=== PATIENT | male | born 1975 | race Caucasian/White ===

== ENCOUNTER 2021-03-30 11:48 | Emergency (ER) | payer OTHER ==
--- NOTE | 2021-03-30 15:08 | CR ---
EXAMINATION: Cervical Spine 3V SEX: Male AGE: 45 years CLINICAL HISTORY: 45-year-old male complaining of shoulder pain and numbness/tingling fingers. Interpretation: 1. Reversal of usual cervical lordosis and evidence of chronic lower cervical disc degeneration with associated reactive arthritic changes i.e. interspace narrowing endplate sclerosis and hypertrophic marginal/uncinate spur formation C5-6. 2. Homogeneous normal bone mineral density. 3. No prevertebral soft tissue swelling, cervical fracture or spondylolisthesis (dislocation). 4. No cervical rib anomalies. Lung apices clear. CONCLUSION: Chronic cervical disc degeneration. No fracture or dislocation C-spine.
--- NOTE | 2021-03-30 15:12 | CR ---
EXAMINATION: Shoulder 2 view Lt SEX: Male AGE: 45 years CLINICAL HISTORY: 45-year-old male "tearing down a barn"" presents with posterior left shoulder pain and swelling. Interpretation: Homogeneous normal bone mineral density. Normal spacing between the acromion process scapula the head of the humerus and no juxta-articular rotator cuff tendon calcifications. No left shoulder fracture, acromioclavicular separation or glenohumeral dislocation. Underlying ribs upper left hemithorax unremarkable. Left lung apex clear. CONCLUSION: Negative exam.
--- NOTE | 2021-03-30 15:14 | CR ---
EXAMINATION: Scapula Lt SEX: Male AGE: 45 years CLINICAL HISTORY: 45-year-old male left shoulder pain (limited mobility, swelling posteriorly) Interpretation: Negative exam. Homogeneous normal bone density of the scapula. No arthritic degenerative changes of the glenohumeral joint. Acromioclavicular joint intact. Underlying ribs upper left hemithorax unremarkable. Left lung apex clear. No pneumothorax.
[2021-03-30] MEDS ORDERED: Orphenadrine 60 MG/2 ML Inj IM ONE (16:49)
[2021-03-30] MEDS ORDERED: Ketorolac 30 MG/ML SDV IM ONE (16:49)
--- NOTE | 2021-03-30 16:56 | EDM.PDOC ---
ED HPI GENERAL MEDICAL PROBLEM - General Chief Complaint: Back Pain or Injury Stated Complaint: UPPER LEFT BACK PAIN Time Seen by Provider: 03/30/21 16:40 Source of Information: Reports: Patient, RN, RN Notes Reviewed History Limitations: Reports: No Limitations - History of Present Illness INITIAL COMMENTS - FREE TEXT/NARRATIVE: Rodrigo is a 45 y/o male who presents to the ED via personal vehicle with complaints of left posterior thoracic pain and left arm numbness. The patient reports he was demolishing a barn when suddenly he developed pain to his left, medial scapular region which radiated into the left shoulder. Additionally, he noted transient numbness and tingling into the hand and fingers. He became concerned about myocardial ischemia due to the location of the pain and the paraesthesia to his left hand. The patient denies history of cardiac events. He denies vision changes, dizziness, chest pain/pressure, palpitations, shortness of breath, dyspepsia, nausea, vomiting, or abdominal pain. He denies history of injury to the affected extremity. He has taken no medications or performed any supportive cares for his symptoms. - Related Data Allergies Allergy/AdvReac Type Severity Reaction Status Date / Time No Known Allergies Allergy Verified 08/27/18 16:30 Home Meds: Home Meds Thyroid,Pork [[place] Thyroid] 30 mg PO DAILY 02/04/18 [History] Cholecalciferol (Vitamin D3) [Vitamin D3] 5,000 unit PO DAILY 08/27/18 [History] Fish Oil/DHA/EPA [Fish Oil 1,200 MG] 2 cap PO DAILY 08/27/18 [History] Multivitamin [Daily Multiple Vitamin] 1 each PO DAILY 08/27/18 [History] Ubidecarenone [Co Q-10] 100 mg PO DAILY 08/27/18 [History] Rosuvastatin Calcium 10 mg PO DAILY 03/30/21 [History] hydrOXYzine HCL [Hydroxyzine HCl] 25 mg PO ASDIRECTED PRN 03/30/21 [History] Past Medical History HEENT History: Reports: None Cardiovascular History: Reports: High Cholesterol Respiratory History: Reports: None Gastrointestinal History: Reports: None Genitourinary History: Reports: None Musculoskeletal History: Reports: Arthritis, Back Pain, Chronic Other Musculoskeletal History: low back pain Neurological History: Reports: None Psychiatric History: Reports: Anxiety, PTSD, Other (See Below) Other Psychiatric History: ANXIETY R/T OVERSEAS Endocrine/Metabolic History: Reports: Hypothyroidism Hematologic History: Reports: None Dermatologic History: Reports: None Social & Family History - Tobacco Use Tobacco Use Status *Q: Never Tobacco User Second Hand Smoke Exposure: No - Caffeine Use Caffeine Use: Reports: Coffee ED ROS GENERAL - Review of Systems Review Of Systems: Comprehensive ROS is negative, except as noted in HPI. ED EXAM, UPPER BACK/NECK PAIN - Physical Exam Exam: See Below Exam Limited By: No Limitations General Appearance: Alert, No Apparent Distress Eye Exam: Bilateral Eye: EOMI, Normal Inspection, PERRL (3mm) Ears Exam: Normal External Exam, Hearing Grossly Normal Nose Exam: Normal Inspection, Normal Mucousa, No Blood Throat/Mouth Exam: Normal Inspection, Normal Lips, Normal Teeth, Normal Gums, Normal Oropharynx, Normal Voice, No Airway Compromise Head Exam: Atraumatic, Normocephalic Neck Exam: Full Range of Motion, Normal Alignment, Muscle Spasm, Paraspinous Muscle Tender (To left lateral neck). No: Painful Range of Motion, Spinous Processes Tender, Tender Midline Nexus Criteria: No: Posterior, Midline Cervical Tenderness, Evidence of Intoxication, Altered Level of Consciousness, Focal Neurological Deficit, Pain ful Distraction Injuries Cardiovascular/Respiratory: Regular Rate, Rhythm, No M/R/G, Normal Peripheral Pulses, No JVD, Normal Breath Sounds, No Respiratory Distress GI/Abdominal: Normal Bowel Sounds, Soft, Non-Tender (Male) Exam: Deferred Rectal (Males) Exam: Deferred Back Exam: Muscle Spasm (To left upper subscapular region), Paraspinal Tenderness (To left upper subscapular region) Extremities: Normal Range of Motion, No Pedal Edema, Normal Capillary Refill, Arm Pain (To left shoulder). 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 nml As Tested, No Motor/Sensory Deficits, Alert, Normal Mood/Affect, Oriented x 3 Psychiatric: Normal Affect, Normal Mood Skin Exam: Normal Color, Warm/Dry Lymphatic: No Adenopathy #1 Interpretation EKG Date: 03/30/21 Time: 17:16 Rhythm: NSR Rate (Beats/Min): 71 [place]: Normal P-Wave: Present QRS: Normal ST-T: Normal QT: Normal CT/PQ Interval: 0.152 Comparison: No Change EKG Interpretation Comments: NSR; q-wave in III; No evidence of acute myocardial ischemia Course - Vital Signs Last Recorded V/S: Last Vital Signs Temp 97.7 F 03/30/21 13:40 Pulse 72 03/30/21 13:40 Resp 16 03/30/21 13:40 BP 132/87 03/30/21 13:40 Pulse Ox 98 03/30/21 13:40 - Orders/Labs/Meds Meds: Medications Discontinued Medications Generic Name Dose Route Start Last Admin Trade Name Opal PRN Reason Stop Dose Admin Ketorolac Tromethamine 30 mg 03/30/21 16:49 03/30/21 17:29 Ketorolac 30 Mg/Ml Sdv IM 03/30/21 16:50 30 mg ONETIME ONE Administration Orphenadrine Citrate 60 mg 03/30/21 16:49 03/30/21 17:29 Orphenadrine 60 Mg/2 Ml Inj IM 03/30/21 16:50 60 mg ONETIME ONE Administration - Re-Assessments/Exams Free Text/Narrative Re-Assessment/Exam: 03/30/21 X-rays of shoulder, scapula, and cervical spine. Orphenadrine 60mg IM and Ketorolac 30mg IM administered. Findings of examination and imaging reviewed with patient. Will treat muscle spasm with orphenadrine and ketorolac. Supportive cares discussed. Patient instructed to follow up with primary care provider regarding todays visit. Red flag signs and symptoms which would warrant immediate reevaluation reviewed. Patient verbalized understanding and agreement with the plan of care. Departure - Departure Time of Disposition: 17:37 Disposition: Home, Self-Care 01 Condition: Fair Clinical Impression: Cervical disc disease, Muscle spasm, Numbness and tingling of left upper extremity - Discharge Information *PRESCRIPTION DRUG MONITORING PROGRAM REVIEWED*: Not Applicable *COPY OF PRESCRIPTION DRUG MONITORING REPORT IN PATIENT CADY: Not Applicable Instructions: Muscle Cramps and Spasms, [id number], Paresthesia Forms: ED Department Discharge Additional Instructions: Rx: orphenadrine Rx: Toradol 1.) You may apply cold compresses to the area as pain and swelling persist, 20 minutes every hour. 2.) You may apply BioFreeze (or a similar ointment/cream) to the affected area, as pain persists. 3.) You may take acetaminophen (Tylenol) 650-1000mg every six hours, as pain persists. Do not take ibuprofen or other NSAIDs while taking Toradol. 4.) Follow up with your primary care provider in 3-5 days regarding todays visit. Sepsis Event Note (ED) - Evaluation Sepsis Screening Result: No Definite Risk
== END 2021-03-30 17:22 | disposition home or self-care (01) ==
LOC: DL.ED 11:48
DX: M50.922 Unspecified cervical disc disorder at C5-C6 level (principal); M62.838 Other muscle spasm; R20.0 Anesthesia of skin; R20.2 Paresthesia of skin; E78.00 Pure hypercholesterolemia, unspecified; E03.9 Hypothyroidism, unspecified; Z79.899 Other long term (current) drug therapy
CPT/HCPCS: 72040; 73010-LT; 73030-LT; 93005; 96372; 99283; J1885; J2360

== ENCOUNTER 2021-07-25 15:26 | Emergency (ER) | payer OTHER ==
[2021-07-25] MEDS ORDERED: Sodium Chloride 0.9% 10 ML Syringe FLUSH PRN (15:29)
[2021-07-25 16:24] LABS: ANION GAP 14.3 mEq/L (7-13); CHLORIDE,CL 98 mmol/L (98-107); SODIUM,NA 135 mmol/L (136-145)
[2021-07-25 16:47] LABS: CORONAVIRUS COVID-19 NAA NEGATIVE (NEGATIVE)
[2021-07-25] MEDS ORDERED: Ketorolac 30 MG/ML SDV IVPUSH ONE (16:59)
== END 2021-07-25 17:12 | disposition home or self-care (01) ==
LOC: DL.ED 15:26
DX: M94.0 Chondrocostal junction syndrome [Tietze] (principal); E78.00 Pure hypercholesterolemia, unspecified; E03.9 Hypothyroidism, unspecified; Z79.899 Other long term (current) drug therapy; Z20.822 Contact with and (suspected) exposure to COVID-19
CPT/HCPCS: 0240U; 36415; 71045; 80053; 80307; 83605; 83690; 83735; 83880; 84443; 84484; 85025; 85379; 86140; 96374; 99285; J1885